=== PATIENT | male | born 1990 | race African-American/Black ===

== ENCOUNTER 2018-01-28 11:10 | Emergency (ER) | payer SELFPAY ==
[~2018-01-28] VITALS: Ht 185.4 cm; Wt 100.0 kg
[2018-01-28 11:17] VITALS: BP 137/89
[2018-01-28] MEDS ORDERED: IBUPROFEN 800MG TABLET PO ONE (11:45)
== END 2018-01-28 11:48 | disposition home or self-care (01) ==
LOC: ER 11:10 → EDBD 11:10 → ER 11:48
DX: S16.1XXA Strain of muscle, fascia and tendon at neck level, initial encounter (principal); V49.49XA Driver injured in collision with other motor vehicles in traffic accident, initial encounter; Y93.89 Activity, other specified; Y92.488 Other paved roadways as the place of occurrence of the external cause; F17.210 Nicotine dependence, cigarettes, uncomplicated; F12.90 Cannabis use, unspecified, uncomplicated
CPT/HCPCS: 99282